=== PATIENT | female | born 1950 | race Caucasian/White ===

== ENCOUNTER 2021-04-21 07:12 | Inpatient (IN) | payer OTHER, MEDICARE ==
[2021-04-21 07:41] LABS: #Lymphocytes 0.7 thou/uL (1.20-3.40); #Monocytes 0.8 thou/uL (0.11-0.59); #Neutrophils 11.2 thou/uL (1.40-6.50); %Basophils 0.1 % (0.0-1.0); %Eosinophils 0.1 % (0.0-10.0); %Lymphocytes 5.2 % (21.0-51.0); %Monocytes 6.2 % (0.0-10.0); %Neutrophils 88.5 % (42.0-75.0); Hemoglobin 11.2 g/dL (12.0-16.0); Mean Corpuscular HGB CONC 32.7 g/dL (32.0-36.0); Mean Corpuscular Hemoglobin 31.1 pg (27.0-31.0); Mean Corpuscular Volume 94.9 fL (78.0-98.0); Mean Platelet Volume 7.9 fL (7.4-10.4); Platelet Count 179 thou/uL (130-400); RBC Distribution Width 13.3 % (11.5-14.5); Red Blood Cell (RBC) Count 3.61 mill/uL (4.20-5.40); White Blood Cell (WBC) Count 12.6 thou/uL (4.8-10.8)
[2021-04-21] MEDS ORDERED: ADMIXTURE FEE IV SCH (07:45)
[2021-04-21] MEDS ORDERED: IDARUCIZUMAB IV SCH (07:45)
[2021-04-21 07:54] LABS: INR-International Normal Ratio 1.8
[2021-04-21 07:55] LABS: ALT (SGPT) 16 U/L (8-55); AST (SGOT) 32 U/L (5-34); Albumin 2.5 g/dL (3.4-4.8); Alkaline Phosphatase 44 U/L (40-110); Anion Gap 14 mmol/L (10-20); BUN (Urea Nitrogen) 37 mg/dL (9.8-20.1); Bilirubin, Total 0.6 mg/dL (0.2-1.2); CK (CPK) 883 U/L (29-168); Calc. Creatinine Clearance 0 mL/min (70-130); Calcium 7.6 mg/dL (7.8-10.44); Carbon Dioxide 18 mmol/L (23-31); Chloride 110 mmol/L (98-107); Glucose 236 mg/dL (80-115); Lipase 17 U/L (8-78); Potassium 3.9 mmol/L (3.5-5.1); Protein, Total 4.5 g/dL (5.8-8.1); Sodium 138 mmol/L (136-145)
[2021-04-21 07:56] LABS: PTT 51.8 sec (22.9-36.1)
[2021-04-21] MEDS ORDERED: Boostrix 0.5 ML (Tdap) VIAL ONE (07:59)
[2021-04-21] MEDS ORDERED: Dextrose 50% Abboject 50 ML SYRINGE SLOW IVP PRN (08:03)
[2021-04-21] MEDS ORDERED: Dextrose 5% in Water 1,000 ML IV PRN (08:03)
[2021-04-21] MEDS ORDERED: hydrALAZINE 20 MG/ML VIAL SLOW IVP PRN (08:03)
[2021-04-21] MEDS ORDERED: Ondansetron PF 4 MG/2 ML Vial IVP PRN (08:03)
[2021-04-21 08:25] LABS: CKMB 10.5 ng/mL (0-6.6)
[2021-04-21] MEDS ORDERED: Fentanyl 100 MCG/2 ML VIAL ONE ×3 (09:01→18:25)
[2021-04-21] MEDS ORDERED: Norepinephrine 8 MG/0.9% NS 250 ML ONE (09:55)
[2021-04-21 10:24] LABS: Phosphorus 3.5 mg/dL (2.3-4.7)
[2021-04-21 10:25] LABS: Magnesium 1.6 mg/dL (1.6-2.6)
[2021-04-21] MEDS ORDERED: ceFAZolin 2 GM/Dextrose 50 ML 2 GM in Premix Bag 1 BAG IVPB SCH (11:00)
[2021-04-21 11:09] LABS: SARS-CoV-2 NAA Rapid Test Not Detected (NotDetected)
[2021-04-21 11:47] VITALS: BMI 55.5
[2021-04-21] MEDS: Sodium Chloride 0.9% 1,000 ML IV SCH ×2 (12:04→19:59)
[2021-04-21] MEDS: Acetaminophen 325 MG TAB PO SCH ×3 (12:06→20:35)
[2021-04-21] MEDS: Famotidine/PF 20 mg/2ml Vial SLOW IVP SCH ×2 (12:06→20:40)
[2021-04-21] MEDS: Polyethylene Glycol 3350 17 GM Packet PO SCH (12:06)
[2021-04-21] MEDS: Senokot S 8.6-50 MG TAB PO SCH ×2 (12:06→20:38)
[2021-04-21 12:24] LABS: Troponin I 0.471 ng/mL (< 0.028)
[2021-04-21] MEDS ORDERED: Glycopyrrolate 0.2 MG/ML 5 ML SYRINGE ONE (13:05)
[2021-04-21] MEDS ORDERED: Lidocaine 1% PF 5 ML VIAL ONE (13:05)
[2021-04-21] MEDS ORDERED: PHENYLEPHRINE-NS 100 MCG/ML 10 ML SYRINGE ONE (13:05)
[2021-04-21] MEDS ORDERED: Ondansetron PF 4 MG/2 ML Vial ONE (13:05)
[2021-04-21] MEDS ORDERED: Rocuronium Bromide 10 MG/ML (10ML VIAL) ONE (13:05)
[2021-04-21] MEDS ORDERED: Metoclopramide HCl 10 MG/2 ML VIAL ONE (13:05)
[2021-04-21] MEDS ORDERED: PROPOFOL 200 MG/20 ML VIAL ONE (13:05)
[2021-04-21] MEDS: Morphine 4 MG/ML VIAL SLOW IVP PRN ×2 (13:09→23:30)
[2021-04-21] MEDS ORDERED: Magnesium Sulfate 4 GM in Sodium Chloride 0.9% 250 ML 250 ML IV SCH (13:15)
[2021-04-21] MEDS ORDERED: Famotidine/PF 20 mg/2ml Vial ONE (14:04)
[2021-04-21] MEDS ORDERED: ceFAZolin 2 GM/DEX 5% 100 ML BAG ONE (14:21)
[2021-04-21] MEDS ORDERED: Norepinephrine 4 MG/4 ML VIAL ONE (14:24)
[2021-04-21] MEDS ORDERED: Phenylephrine 10 MG/ML VIAL ONE (14:57)
[2021-04-21] MEDS ORDERED: Oxybutynin 5 MG TAB PO PRN (15:54)
[2021-04-21] MEDS ORDERED: Promethazine HCl 25 MG/ML VIAL IM PRN (18:04)
[2021-04-21] MEDS ORDERED: PACU-Morphine 4MG/ML VIAL SLOW IVP PRN (18:04)
[2021-04-21] MEDS ORDERED: Meperidine HCl/PF 25 MG/ML VIAL SLOW IVP PRN (18:04)
[2021-04-21] MEDS ORDERED: Promethazine HCl 25 MG/ML VIAL IVPB PRN (18:04)
[2021-04-21 19:58] LABS: Troponin I 0.567 ng/mL (< 0.028)
[2021-04-21] MEDS: Flecainide 50 MG TAB PO SCH (20:38)
[2021-04-21] MEDS: Ascorbic Acid 500 mg Chewable Tablet PO SCH (20:38)
[2021-04-21] MEDS: Atorvastatin Calcium 40 MG TAB PO SCH (20:38)
[2021-04-21] MEDS: hydrALAZINE 25 MG TAB PO SCH (20:41)
[2021-04-21] MEDS ORDERED: Losartan 25 MG TAB PO SCH (21:00)
[2021-04-21] MEDS ORDERED: hydrALAZINE 20 MG/ML VIAL SLOW IVP SCH (21:00)
[2021-04-21] MEDS: ceFAZolin Sodium/D5W 2 GM in Premix Bag 1 BAG IVPB SCH (22:10)
[2021-04-22] MEDS: Sodium Chloride 0.9% 1,000 ML IV SCH ×2 (02:15→13:47)
[2021-04-22] MEDS: Acetaminophen 325 MG TAB PO SCH ×4 (02:15→20:14)
[2021-04-22 03:35] LABS: INR-International Normal Ratio 1.3; PTT 31.4 sec (22.9-36.1); Prothrombin Time 16.2 sec (12.0-14.7)
[2021-04-22 03:38] LABS: Phosphorus 3.6 mg/dL (2.3-4.7)
[2021-04-22 03:42] LABS: #Monocytes 0.9 thou/uL (0.11-0.59); #Neutrophils 5.2 thou/uL (1.40-6.50); %Basophils 0.4 % (0.0-1.0); %Eosinophils 0.1 % (0.0-10.0); %Lymphocytes 13.7 % (21.0-51.0); %Neutrophils 73.7 % (42.0-75.0); Mean Corpuscular HGB CONC 34.5 g/dL (32.0-36.0); Platelet Count 91 thou/uL (130-400); Platelet Morphology Comment Appears Decreased; White Blood Cell (WBC) Count 7.1 thou/uL (4.8-10.8)
[2021-04-22 03:46] LABS: Anion Gap 10 mmol/L (10-20); BUN (Urea Nitrogen) 41 mg/dL (9.8-20.1); CK (CPK) 3198 U/L (29-168); Calc. Creatinine Clearance 65 mL/min (70-130); Calcium 6.9 mg/dL (7.8-10.44); Carbon Dioxide 19 mmol/L (23-31); Chloride 111 mmol/L (98-107); Glucose 130 mg/dL (80-115); Magnesium 1.6 mg/dL (1.6-2.6); Potassium 4.2 mmol/L (3.5-5.1); Sodium 136 mmol/L (136-145)
[2021-04-22 03:58] LABS: Troponin I 0.515 ng/mL (< 0.028)
[2021-04-22] MEDS: Levothyroxine Sodium 88 MCG TAB PO SCH (06:18)
[2021-04-22] MEDS: ceFAZolin Sodium/D5W 2 GM in Premix Bag 1 BAG IVPB SCH (06:18)
[2021-04-22] MEDS ORDERED: Magnesium Sulfate 4 GM in Sodium Chloride 0.9% 250 ML 250 ML IV SCH (08:00)
[2021-04-22] MEDS ORDERED: Sodium Bicarbonate 100 MEQ in Dextrose 5% in Water 1,000 ML FS SCH (08:15)
[2021-04-22] MEDS ORDERED: Calcium Chloride 1 GM/10 ML Abboject SYRINGE IVP SCH (09:30)
[2021-04-22] MEDS: Morphine 4 MG/ML VIAL SLOW IVP PRN (09:37)
[2021-04-22] MEDS: Torsemide 10 MG TAB PO SCH (09:42)
[2021-04-22] MEDS: Ferrous Sulfate 325 MG TAB PO SCH ×2 (09:42→17:37)
[2021-04-22] MEDS: Senokot S 8.6-50 MG TAB PO SCH ×2 (09:42→20:17)
[2021-04-22] MEDS: Flecainide 50 MG TAB PO SCH ×2 (09:44→20:17)
[2021-04-22] MEDS: Ascorbic Acid 500 mg Chewable Tablet PO SCH ×2 (09:45→20:16)
[2021-04-22] MEDS: hydrALAZINE 25 MG TAB PO SCH ×2 (09:45→20:17)
[2021-04-22] MEDS ORDERED: Sodium Chloride 0.9% 1,000 ML IV SCH (09:45)
[2021-04-22] MEDS: Polyethylene Glycol 3350 17 GM Packet PO SCH (09:46)
[2021-04-22] MEDS: Atorvastatin Calcium 40 MG TAB PO SCH (20:16)
[2021-04-23] MEDS: Acetaminophen 325 MG TAB PO SCH ×4 (01:10→21:07)
[2021-04-23] MEDS: Sodium Chloride 0.9% 1,000 ML IV SCH ×5 (01:10→18:01)
[2021-04-23] MEDS: Morphine 4 MG/ML VIAL SLOW IVP PRN (04:54)
[2021-04-23] MEDS: Levothyroxine Sodium 88 MCG TAB PO SCH (04:55)
[2021-04-23 05:56] LABS: #Eosinphils 0.1 thou/uL (0.0-0.7); #Monocytes 0.8 thou/uL (0.11-0.59); #Neutrophils 4.1 thou/uL (1.40-6.50); %Basophils 0.3 % (0.0-1.0); %Eosinophils 1.3 % (0.0-10.0); %Lymphocytes 16.3 % (21.0-51.0); %Monocytes 12.7 % (0.0-10.0); %Neutrophils 69.4 % (42.0-75.0); Hemoglobin 7.1 g/dL (12.0-16.0); Mean Corpuscular HGB CONC 33.4 g/dL (32.0-36.0); Mean Corpuscular Hemoglobin 31.9 pg (27.0-31.0); Mean Corpuscular Volume 95.6 fL (78.0-98.0); Mean Platelet Volume 8.2 fL (7.4-10.4); Platelet Count 82 thou/uL (130-400); RBC Distribution Width 13.7 % (11.5-14.5); Red Blood Cell (RBC) Count 2.23 mill/uL (4.20-5.40); White Blood Cell (WBC) Count 5.9 thou/uL (4.8-10.8)
[2021-04-23 06:16] LABS: Anion Gap 9 mmol/L (10-20); BUN (Urea Nitrogen) 40 mg/dL (9.8-20.1); CK (CPK) 2578 U/L (29-168); Calc. Creatinine Clearance 65 mL/min (70-130); Calcium 7.3 mg/dL (7.8-10.44); Carbon Dioxide 20 mmol/L (23-31); Chloride 112 mmol/L (98-107); Glucose 128 mg/dL (80-115); Magnesium 2.5 mg/dL (1.6-2.6); Phosphorus 3.1 mg/dL (2.3-4.7); Sodium 137 mmol/L (136-145)
[2021-04-23] MEDS ORDERED: Fentanyl 100 MCG/2 ML VIAL ONE (07:51)
[2021-04-23] MEDS ORDERED: ceFAZolin 2 GM/DEX 5% 100 ML BAG ONE (08:05)
[2021-04-23] MEDS ORDERED: PROPOFOL 200 MG/20 ML VIAL ONE (08:20)
[2021-04-23] MEDS ORDERED: Dexamethasone 20 MG/5 ML VIAL ONE (08:20)
[2021-04-23] MEDS ORDERED: Succinylcholine 200 MG/10 ml SYRINGE FS ONE (08:20)
[2021-04-23] MEDS ORDERED: Lidocaine 1% PF 5 ML VIAL ONE (08:20)
[2021-04-23] MEDS ORDERED: Ondansetron PF 4 MG/2 ML Vial ONE (08:20)
[2021-04-23] MEDS ORDERED: Rocuronium Bromide 10 MG/ML (10ML VIAL) ONE (08:20)
[2021-04-23] MEDS ORDERED: Glycopyrrolate 0.2 MG/ML 5 ML SYRINGE ONE (08:20)
[2021-04-23] MEDS: Torsemide 10 MG TAB PO SCH (09:00)
[2021-04-23] MEDS: hydrALAZINE 25 MG TAB PO SCH ×2 (09:46→21:06)
[2021-04-23] MEDS: Ferrous Sulfate 325 MG TAB PO SCH ×2 (10:31→17:46)
[2021-04-23] MEDS: Polyethylene Glycol 3350 17 GM Packet PO SCH (10:32)
[2021-04-23] MEDS: Senokot S 8.6-50 MG TAB PO SCH ×2 (10:32→21:08)
[2021-04-23] MEDS: Ascorbic Acid 500 mg Chewable Tablet PO SCH ×2 (10:32→17:46)
[2021-04-23] MEDS: ceFAZolin Sodium/D5W 2 GM in Premix Bag 1 BAG IVPB SCH ×3 (14:24→21:10)
[2021-04-23] MEDS ORDERED: Flecainide 50 MG TAB PO SCH (14:30)
[2021-04-23] MEDS: Flecainide 50 MG TAB PO SCH ×2 (17:46→21:08)
[2021-04-23 20:22] LABS: #Basophils 0.1 thou/uL (0.0-0.2); #Lymphocytes 0.2 thou/uL (1.20-3.40); #Monocytes 0.3 thou/uL (0.11-0.59); #Neutrophils 5.9 thou/uL (1.40-6.50); %Basophils 1.5 % (0.0-1.0); %Eosinophils 0.2 % (0.0-10.0); %Lymphocytes 2.6 % (21.0-51.0); %Monocytes 4.2 % (0.0-10.0); %Neutrophils 91.5 % (42.0-75.0); Hemoglobin 9.6 g/dL (12.0-16.0); Mean Corpuscular HGB CONC 34.4 g/dL (32.0-36.0); Mean Corpuscular Hemoglobin 32.3 pg (27.0-31.0); Mean Platelet Volume 8.8 fL (7.4-10.4); Platelet Count 75 thou/uL (130-400); RBC Distribution Width 13.3 % (11.5-14.5); Red Blood Cell (RBC) Count 2.97 mill/uL (4.20-5.40); White Blood Cell (WBC) Count 6.4 thou/uL (4.8-10.8)
[2021-04-23] MEDS: Atorvastatin Calcium 40 MG TAB PO SCH (21:06)
[2021-04-23] MEDS: Losartan 25 MG TAB PO SCH (21:07)
[2021-04-24] MEDS: Sodium Chloride 0.9% 1,000 ML IV SCH ×3 (01:26→17:24)
[2021-04-24] MEDS: Acetaminophen 325 MG TAB PO SCH ×3 (01:50→21:57)
[2021-04-24] MEDS: ceFAZolin Sodium/D5W 2 GM in Premix Bag 1 BAG IVPB SCH ×2 (05:16→05:17)
[2021-04-24] MEDS: Levothyroxine Sodium 88 MCG TAB PO SCH (05:17)
[2021-04-24] MEDS: Morphine 4 MG/ML VIAL SLOW IVP PRN (05:58)
[2021-04-24 06:20] LABS: #Lymphocytes 0.4 thou/uL (1.20-3.40); #Monocytes 0.6 thou/uL (0.11-0.59); #Neutrophils 6.6 thou/uL (1.40-6.50); %Lymphocytes 5.7 % (21.0-51.0); %Monocytes 7.8 % (0.0-10.0); %Neutrophils 86.5 % (42.0-75.0); Hemoglobin 9.5 g/dL (12.0-16.0); Mean Corpuscular HGB CONC 33.9 g/dL (32.0-36.0); Mean Corpuscular Hemoglobin 31.6 pg (27.0-31.0); Mean Corpuscular Volume 93.1 fL (78.0-98.0); Mean Platelet Volume 8.7 fL (7.4-10.4); Platelet Count 87 thou/uL (130-400); RBC Distribution Width 13.2 % (11.5-14.5); Red Blood Cell (RBC) Count 3.02 mill/uL (4.20-5.40); White Blood Cell (WBC) Count 7.7 thou/uL (4.8-10.8)
[2021-04-24 06:36] LABS: Anion Gap 10 mmol/L (10-20); BUN (Urea Nitrogen) 32 mg/dL (9.8-20.1); CK (CPK) 2495 U/L (29-168); Calc. Creatinine Clearance 72 mL/min (70-130); Calcium 7.5 mg/dL (7.8-10.44); Carbon Dioxide 22 mmol/L (23-31); Chloride 108 mmol/L (98-107); Glucose 221 mg/dL (80-115); Magnesium 2.3 mg/dL (1.6-2.6); Phosphorus 2.1 mg/dL (2.3-4.7); Potassium 4.6 mmol/L (3.5-5.1); Sodium 135 mmol/L (136-145)
[2021-04-24 06:40] LABS: Troponin I 0.505 ng/mL (< 0.028)
[2021-04-24] MEDS ORDERED: Sodium Phosphate 30 MMOL in Sodium Chloride 0.9% 250 ML 250 ML IVPB SCH (08:00)
[2021-04-24] MEDS ORDERED: Acetaminophen 500 MG TAB PO SCH (08:00)
[2021-04-24] MEDS: hydrALAZINE 25 MG TAB PO SCH ×2 (08:21→21:59)
[2021-04-24] MEDS: Ferrous Sulfate 325 MG TAB PO SCH ×2 (08:21→15:16)
[2021-04-24] MEDS: Senokot S 8.6-50 MG TAB PO SCH ×2 (08:21→22:00)
[2021-04-24] MEDS: Ascorbic Acid 500 mg Chewable Tablet PO SCH ×2 (08:21→21:58)
[2021-04-24] MEDS: Polyethylene Glycol 3350 17 GM Packet PO SCH (08:21)
[2021-04-24] MEDS ORDERED: Enoxaparin Sodium 40 MG/0.4 ML SYRINGE SC SCH (09:00)
[2021-04-24] MEDS ORDERED: Morphine 4 MG/ML VIAL SLOW IVP PRN (09:30)
[2021-04-24] MEDS: Flecainide 50 MG TAB PO SCH ×2 (09:39→22:05)
[2021-04-24] MEDS: Torsemide 10 MG TAB PO SCH (12:58)
[2021-04-24] MEDS: Acetaminophen/Codeine 30-300mg Tablet PO SCH ×2 (12:58→17:44)
[2021-04-24] MEDS: Gabapentin 100 MG CAP PO SCH ×2 (15:16→21:59)
[2021-04-24] MEDS ORDERED: Enoxaparin Sodium 30 MG/0.3 ML SYRINGE SC SCH (21:00)
[2021-04-24] MEDS: Atorvastatin Calcium 40 MG TAB PO SCH (21:58)
[2021-04-24] MEDS: Losartan 25 MG TAB PO SCH (22:00)
[2021-04-25] MEDS: Acetaminophen/Codeine 30-300mg Tablet PO SCH ×4 (00:52→19:12)
[2021-04-25] MEDS: Acetaminophen 325 MG TAB PO SCH ×4 (05:31→20:21)
[2021-04-25] MEDS: Levothyroxine Sodium 88 MCG TAB PO SCH (05:34)
[2021-04-25] MEDS: Sodium Chloride 0.9% 1,000 ML IV SCH (05:36)
[2021-04-25 06:15] LABS: #Lymphocytes 0.8 thou/uL (1.20-3.40); #Monocytes 0.8 thou/uL (0.11-0.59); #Neutrophils 7.1 thou/uL (1.40-6.50); %Basophils 0.1 % (0.0-1.0); %Eosinophils 0.1 % (0.0-10.0); %Lymphocytes 8.7 % (21.0-51.0); %Monocytes 8.8 % (0.0-10.0); %Neutrophils 82.2 % (42.0-75.0); Hemoglobin 9.3 g/dL (12.0-16.0); Mean Corpuscular HGB CONC 33.5 g/dL (32.0-36.0); Mean Corpuscular Hemoglobin 31.5 pg (27.0-31.0); Mean Corpuscular Volume 94.1 fL (78.0-98.0); Mean Platelet Volume 8.4 fL (7.4-10.4); Platelet Count 119 thou/uL (130-400); RBC Distribution Width 13.5 % (11.5-14.5); Red Blood Cell (RBC) Count 2.93 mill/uL (4.20-5.40); White Blood Cell (WBC) Count 8.6 thou/uL (4.8-10.8)
[2021-04-25 06:40] LABS: Anion Gap 11 mmol/L (10-20); BUN (Urea Nitrogen) 36 mg/dL (9.8-20.1); CK (CPK) 1714 U/L (29-168); Calc. Creatinine Clearance 91 mL/min (70-130); Calcium 7.5 mg/dL (7.8-10.44); Carbon Dioxide 21 mmol/L (23-31); Chloride 112 mmol/L (98-107); Glucose 129 mg/dL (80-115); Magnesium 2.3 mg/dL (1.6-2.6); Phosphorus 2.3 mg/dL (2.3-4.7); Potassium 4.5 mmol/L (3.5-5.1); Sodium 139 mmol/L (136-145)
[2021-04-25] MEDS: Polyethylene Glycol 3350 17 GM Packet PO SCH (09:55)
[2021-04-25] MEDS: Gabapentin 100 MG CAP PO SCH ×3 (09:56→20:20)
[2021-04-25] MEDS: hydrALAZINE 25 MG TAB PO SCH ×2 (09:57→20:24)
[2021-04-25] MEDS: Senokot S 8.6-50 MG TAB PO SCH ×2 (09:57→20:25)
[2021-04-25] MEDS: Ferrous Sulfate 325 MG TAB PO SCH ×2 (09:57→19:12)
[2021-04-25] MEDS: Dabigatran 150 mg Capsule PO SCH ×2 (09:57→20:23)
[2021-04-25] MEDS: Torsemide 10 MG TAB PO SCH (09:59)
[2021-04-25] MEDS: Ascorbic Acid 500 mg Chewable Tablet PO SCH ×2 (09:59→20:23)
[2021-04-25] MEDS: Flecainide 50 MG TAB PO SCH ×2 (10:00→20:23)
[2021-04-25] MEDS: Atorvastatin Calcium 40 MG TAB PO SCH (20:23)
[2021-04-25] MEDS: Losartan 25 MG TAB PO SCH (20:24)
[2021-04-26] MEDS: Acetaminophen/Codeine 30-300mg Tablet PO SCH ×5 (00:14→23:04)
[2021-04-26] MEDS: Acetaminophen 325 MG TAB PO SCH ×5 (02:43→20:38)
[2021-04-26] MEDS: Levothyroxine Sodium 88 MCG TAB PO SCH (05:01)
[2021-04-26 06:40] LABS: Hemoglobin 9.6 g/dL (12.0-16.0); Mean Corpuscular HGB CONC 33.2 g/dL (32.0-36.0); Mean Corpuscular Hemoglobin 31.4 pg (27.0-31.0); Mean Corpuscular Volume 94.6 fL (78.0-98.0); Mean Platelet Volume 7.6 fL (7.4-10.4); Platelet Count 154 thou/uL (130-400); RBC Distribution Width 13.6 % (11.5-14.5); Red Blood Cell (RBC) Count 3.06 mill/uL (4.20-5.40)
[2021-04-26 06:41] LABS: Band 1 % (5-11); Eosinophils 1 % (0-10); Hypochromia SLIGHT = 6-15 cells (100X) (0-5/hpf); Lymphocytes 9 % (21-51); MDiff Complete? YES; Monocytes 13 % (0-10); Neutrophil 76 % (42-75); Nucleated RBC 1 % (0); Platelet Morphology Comment Appears Adequate
[2021-04-26 06:47] LABS: Anion Gap 10 mmol/L (10-20); BUN (Urea Nitrogen) 35 mg/dL (9.8-20.1); CK (CPK) 1194 U/L (29-168); Calc. Creatinine Clearance 95 mL/min (70-130); Calcium 7.9 mg/dL (7.8-10.44); Carbon Dioxide 25 mmol/L (23-31); Chloride 110 mmol/L (98-107); Glucose 111 mg/dL (80-115); Magnesium 2.1 mg/dL (1.6-2.6); Phosphorus 2.1 mg/dL (2.3-4.7); Potassium 4.5 mmol/L (3.5-5.1); Sodium 140 mmol/L (136-145)
[2021-04-26] MEDS ORDERED: Magnesium Citrate 300 ML BOT PO SCH (07:45)
[2021-04-26] MEDS ORDERED: Sodium Phosphate 30 MMOL in Sodium Chloride 0.9% 250 ML 250 ML IVPB SCH (08:15)
[2021-04-26] MEDS: Polyethylene Glycol 3350 17 GM Packet PO SCH (08:39)
[2021-04-26] MEDS: Torsemide 10 MG TAB PO SCH (08:39)
[2021-04-26] MEDS: Dabigatran 150 mg Capsule PO SCH ×2 (08:40→20:40)
[2021-04-26] MEDS: Ferrous Sulfate 325 MG TAB PO SCH ×2 (08:41→18:28)
[2021-04-26] MEDS: Ascorbic Acid 500 mg Chewable Tablet PO SCH ×2 (08:41→20:39)
[2021-04-26] MEDS: diphenhydrAMINE 25 MG CAP PO PRN (08:41)
[2021-04-26] MEDS: Flecainide 50 MG TAB PO SCH ×2 (08:42→20:40)
[2021-04-26] MEDS: Gabapentin 100 MG CAP PO SCH ×3 (08:43→20:41)
[2021-04-26] MEDS: hydrALAZINE 25 MG TAB PO SCH ×2 (08:44→21:20)
[2021-04-26] MEDS: Senokot S 8.6-50 MG TAB PO SCH ×2 (08:48→20:43)
[2021-04-26] MEDS: Atorvastatin Calcium 40 MG TAB PO SCH (20:40)
[2021-04-26] MEDS: Losartan 25 MG TAB PO SCH (20:42)
[2021-04-27] MEDS: Acetaminophen 325 MG TAB PO SCH ×4 (01:48→20:48)
[2021-04-27] MEDS: Acetaminophen/Codeine 30-300mg Tablet PO SCH ×4 (05:12→23:44)
[2021-04-27] MEDS: Levothyroxine Sodium 88 MCG TAB PO SCH (05:12)
[2021-04-27] MEDS: Torsemide 10 MG TAB PO SCH (08:54)
[2021-04-27] MEDS: Ascorbic Acid 500 mg Chewable Tablet PO SCH ×2 (08:54→20:49)
[2021-04-27] MEDS: Ferrous Sulfate 325 MG TAB PO SCH ×2 (08:54→17:50)
[2021-04-27] MEDS: Flecainide 50 MG TAB PO SCH ×2 (08:55→20:50)
[2021-04-27] MEDS: Gabapentin 100 MG CAP PO SCH ×3 (08:56→20:52)
[2021-04-27] MEDS: Senokot S 8.6-50 MG TAB PO SCH ×2 (08:57→20:55)
[2021-04-27] MEDS: hydrALAZINE 25 MG TAB PO SCH ×2 (08:57→20:53)
[2021-04-27] MEDS: Polyethylene Glycol 3350 17 GM Packet PO SCH (08:58)
[2021-04-27] MEDS: Dabigatran 150 mg Capsule PO SCH ×2 (08:58→20:49)
[2021-04-27] MEDS ORDERED: Bisacodyl 10 MG SUPP PR PRN (09:22)
[2021-04-27] MEDS ORDERED: Magnesium Citrate 300 ML BOT PO SCH (10:15)
[2021-04-27] MEDS ORDERED: Mineral Oil ENEMA PR SCH (10:15)
[2021-04-27] MEDS: Atorvastatin Calcium 40 MG TAB PO SCH (20:49)
[2021-04-27] MEDS: Losartan 25 MG TAB PO SCH (20:54)
[2021-04-27] MEDS: diphenhydrAMINE 25 MG CAP PO PRN (21:00)
[2021-04-28] MEDS: Acetaminophen 325 MG TAB PO SCH ×4 (02:07→20:43)
[2021-04-28] MEDS: Acetaminophen/Codeine 30-300mg Tablet PO SCH ×3 (05:22→17:26)
[2021-04-28] MEDS: Levothyroxine Sodium 88 MCG TAB PO SCH (05:23)
[2021-04-28] MEDS: Ferrous Sulfate 325 MG TAB PO SCH (08:32)
[2021-04-28] MEDS: Polyethylene Glycol 3350 17 GM Packet PO SCH (08:32)
[2021-04-28] MEDS: Dabigatran 150 mg Capsule PO SCH ×2 (08:32→20:43)
[2021-04-28] MEDS: Flecainide 50 MG TAB PO SCH ×2 (08:33→21:40)
[2021-04-28] MEDS: Ascorbic Acid 500 mg Chewable Tablet PO SCH (08:33)
[2021-04-28] MEDS: Senokot S 8.6-50 MG TAB PO SCH ×2 (08:33→20:43)
[2021-04-28] MEDS: Gabapentin 100 MG CAP PO SCH ×3 (08:36→20:44)
[2021-04-28] MEDS: hydrALAZINE 25 MG TAB PO SCH ×2 (08:37→20:44)
[2021-04-28 08:38] LABS: #Eosinphils 0.4 thou/uL (0.0-0.7); #Monocytes 0.5 thou/uL (0.11-0.59); #Neutrophils 5.4 thou/uL (1.40-6.50); %Basophils 0.3 % (0.0-1.0); %Eosinophils 5.1 % (0.0-10.0); %Lymphocytes 13.1 % (21.0-51.0); %Monocytes 6.8 % (0.0-10.0); %Neutrophils 74.7 % (42.0-75.0); Mean Corpuscular HGB CONC 32.6 g/dL (32.0-36.0); Mean Corpuscular Hemoglobin 31.5 pg (27.0-31.0); Mean Corpuscular Volume 96.8 fL (78.0-98.0); Mean Platelet Volume 7.1 fL (7.4-10.4); Platelet Count 243 thou/uL (130-400); RBC Distribution Width 14.2 % (11.5-14.5); Red Blood Cell (RBC) Count 3.18 mill/uL (4.20-5.40); White Blood Cell (WBC) Count 7.2 thou/uL (4.8-10.8)
[2021-04-28 09:00] LABS: Anion Gap 8 mmol/L (10-20); BUN (Urea Nitrogen) 30 mg/dL (9.8-20.1); CK (CPK) 318 U/L (29-168); Calc. Creatinine Clearance 120 mL/min (70-130); Calcium 8.2 mg/dL (7.8-10.44); Carbon Dioxide 30 mmol/L (23-31); Chloride 105 mmol/L (98-107); Glucose 126 mg/dL (80-115); Magnesium 2.3 mg/dL (1.6-2.6); Potassium 4.9 mmol/L (3.5-5.1); Sodium 138 mmol/L (136-145)
[2021-04-28] MEDS: Torsemide 10 MG TAB PO SCH (09:13)
[2021-04-28] MEDS: diphenhydrAMINE 25 MG CAP PO PRN (09:39)
[2021-04-28 16:50] LABS: SARS-CoV-2 PCR by NAA Not Detected (NotDetected)
[2021-04-28] MEDS: Atorvastatin Calcium 40 MG TAB PO SCH (20:43)
[2021-04-28] MEDS: Losartan 25 MG TAB PO SCH (20:44)
[2021-04-29] MEDS: Acetaminophen/Codeine 30-300mg Tablet PO SCH ×4 (00:10→17:53)
[2021-04-29] MEDS: Acetaminophen 325 MG TAB PO SCH ×4 (02:15→21:01)
[2021-04-29] MEDS: Levothyroxine Sodium 88 MCG TAB PO SCH (05:55)
[2021-04-29] MEDS: Flecainide 50 MG TAB PO SCH ×2 (08:36→21:02)
[2021-04-29] MEDS: Torsemide 10 MG TAB PO SCH (08:36)
[2021-04-29] MEDS: Dabigatran 150 mg Capsule PO SCH ×2 (08:36→21:00)
[2021-04-29] MEDS: diphenhydrAMINE 25 MG CAP PO PRN (08:38)
[2021-04-29] MEDS: Senokot S 8.6-50 MG TAB PO SCH ×2 (08:38→21:01)
[2021-04-29] MEDS: Gabapentin 100 MG CAP PO SCH ×3 (08:38→21:00)
[2021-04-29] MEDS: hydrALAZINE 25 MG TAB PO SCH ×2 (08:39→21:01)
[2021-04-29] MEDS: Polyethylene Glycol 3350 17 GM Packet PO SCH (08:39)
[2021-04-29] MEDS: Losartan 25 MG TAB PO SCH (21:00)
[2021-04-29] MEDS: Atorvastatin Calcium 40 MG TAB PO SCH (21:00)
[2021-04-30] MEDS: Acetaminophen/Codeine 30-300mg Tablet PO SCH ×5 (00:52→23:58)
[2021-04-30] MEDS: Acetaminophen 325 MG TAB PO SCH ×4 (04:16→20:59)
[2021-04-30] MEDS: Levothyroxine Sodium 88 MCG TAB PO SCH (06:33)
[2021-04-30 07:15] LABS: #Eosinphils 0.4 thou/uL (0.0-0.7); #Lymphocytes 0.9 thou/uL (1.20-3.40); #Monocytes 0.5 thou/uL (0.11-0.59); #Neutrophils 4.1 thou/uL (1.40-6.50); %Basophils 0.1 % (0.0-1.0); %Eosinophils 7.1 % (0.0-10.0); %Lymphocytes 14.8 % (21.0-51.0); %Neutrophils 69.1 % (42.0-75.0); Hemoglobin 9.5 g/dL (12.0-16.0); Mean Corpuscular HGB CONC 32.1 g/dL (32.0-36.0); Mean Corpuscular Hemoglobin 31.5 pg (27.0-31.0); Mean Corpuscular Volume 98.3 fL (78.0-98.0); Mean Platelet Volume 6.8 fL (7.4-10.4); Platelet Count 281 thou/uL (130-400); RBC Distribution Width 14.6 % (11.5-14.5); Red Blood Cell (RBC) Count 3.01 mill/uL (4.20-5.40)
[2021-04-30 07:19] LABS: Anion Gap 10 mmol/L (10-20); BUN (Urea Nitrogen) 30 mg/dL (9.8-20.1); Calc. Creatinine Clearance 103 mL/min (70-130); Calcium 8.6 mg/dL (7.8-10.44); Carbon Dioxide 29 mmol/L (23-31); Chloride 105 mmol/L (98-107); Glucose 106 mg/dL (80-115); Magnesium 1.9 mg/dL (1.6-2.6); Phosphorus 3.6 mg/dL (2.3-4.7); Potassium 5.3 mmol/L (3.5-5.1); Sodium 139 mmol/L (136-145)
[2021-04-30] MEDS: Polyethylene Glycol 3350 17 GM Packet PO SCH (08:04)
[2021-04-30] MEDS: Gabapentin 100 MG CAP PO SCH ×3 (08:05→20:58)
[2021-04-30] MEDS: hydrALAZINE 25 MG TAB PO SCH ×2 (08:05→20:59)
[2021-04-30] MEDS: Dabigatran 150 mg Capsule PO SCH ×2 (08:06→20:59)
[2021-04-30] MEDS: diphenhydrAMINE 25 MG CAP PO PRN ×2 (08:06→20:57)
[2021-04-30] MEDS: Flecainide 50 MG TAB PO SCH ×2 (08:06→20:58)
[2021-04-30] MEDS: Torsemide 10 MG TAB PO SCH (08:06)
[2021-04-30] MEDS: Senokot S 8.6-50 MG TAB PO SCH ×2 (08:06→20:58)
[2021-04-30] MEDS: Atorvastatin Calcium 40 MG TAB PO SCH (20:59)
[2021-04-30] MEDS: Losartan 25 MG TAB PO SCH (20:59)
[2021-05-01] MEDS: Acetaminophen 325 MG TAB PO SCH ×4 (02:41→20:29)
[2021-05-01] MEDS: Acetaminophen/Codeine 30-300mg Tablet PO SCH ×4 (05:40→23:40)
[2021-05-01] MEDS: diphenhydrAMINE 25 MG CAP PO PRN ×2 (05:40→11:47)
[2021-05-01] MEDS: Levothyroxine Sodium 88 MCG TAB PO SCH (05:40)
[2021-05-01] MEDS: Senokot S 8.6-50 MG TAB PO SCH ×2 (09:15→20:34)
[2021-05-01] MEDS: Torsemide 10 MG TAB PO SCH (09:15)
[2021-05-01] MEDS: Dabigatran 150 mg Capsule PO SCH ×2 (09:15→20:30)
[2021-05-01] MEDS: Polyethylene Glycol 3350 17 GM Packet PO SCH (09:15)
[2021-05-01] MEDS: Gabapentin 100 MG CAP PO SCH ×2 (09:16→14:30)
[2021-05-01] MEDS: Flecainide 50 MG TAB PO SCH ×2 (09:17→20:32)
[2021-05-01] MEDS: hydrALAZINE 25 MG TAB PO SCH ×2 (09:18→20:33)
[2021-05-01] MEDS: Atorvastatin Calcium 40 MG TAB PO SCH (20:29)
[2021-05-01] MEDS: Losartan 25 MG TAB PO SCH (20:31)
[2021-05-01] MEDS: Simethicone Chewable 80 MG TAB PO PRN (20:34)
[2021-05-02] MEDS: Acetaminophen 325 MG TAB PO SCH ×4 (02:06→19:35)
[2021-05-02] MEDS: Simethicone Chewable 80 MG TAB PO PRN ×2 (03:55→18:29)
[2021-05-02] MEDS: Acetaminophen/Codeine 30-300mg Tablet PO SCH ×3 (05:37→17:58)
[2021-05-02] MEDS: Levothyroxine Sodium 88 MCG TAB PO SCH (05:41)
[2021-05-02] MEDS: diphenhydrAMINE 25 MG CAP PO PRN (05:59)
[2021-05-02] MEDS: Polyethylene Glycol 3350 17 GM Packet PO SCH (09:39)
[2021-05-02] MEDS: Senokot S 8.6-50 MG TAB PO SCH ×2 (09:39→19:35)
[2021-05-02] MEDS: Torsemide 10 MG TAB PO SCH (09:39)
[2021-05-02] MEDS: Dabigatran 150 mg Capsule PO SCH ×2 (09:40→19:36)
[2021-05-02] MEDS: Flecainide 50 MG TAB PO SCH ×2 (09:41→19:35)
[2021-05-02] MEDS: hydrALAZINE 25 MG TAB PO SCH ×2 (10:11→19:34)
[2021-05-02] MEDS: Atorvastatin Calcium 40 MG TAB PO SCH (19:34)
[2021-05-02] MEDS: Losartan 25 MG TAB PO SCH (19:34)
[2021-05-03] MEDS: Acetaminophen/Codeine 30-300mg Tablet PO SCH ×4 (00:04→18:00)
[2021-05-03] MEDS: Acetaminophen 325 MG TAB PO SCH ×4 (01:20→20:27)
[2021-05-03] MEDS: Levothyroxine Sodium 88 MCG TAB PO SCH (05:20)
[2021-05-03] MEDS: Polyethylene Glycol 3350 17 GM Packet PO SCH (08:39)
[2021-05-03] MEDS: Senokot S 8.6-50 MG TAB PO SCH ×2 (08:39→20:30)
[2021-05-03] MEDS: hydrALAZINE 25 MG TAB PO SCH ×2 (08:39→20:29)
[2021-05-03] MEDS: Torsemide 10 MG TAB PO SCH (08:39)
[2021-05-03] MEDS: Flecainide 50 MG TAB PO SCH ×2 (08:40→20:28)
[2021-05-03] MEDS: Dabigatran 150 mg Capsule PO SCH ×2 (08:40→20:28)
[2021-05-03] MEDS: Atorvastatin Calcium 40 MG TAB PO SCH (20:28)
[2021-05-03] MEDS: Losartan 25 MG TAB PO SCH (20:29)
[2021-05-03] MEDS: Melatonin 3 MG TAB PO SCH (20:29)
[2021-05-04] MEDS: Acetaminophen/Codeine 30-300mg Tablet PO SCH ×5 (00:02→23:26)
[2021-05-04] MEDS: Acetaminophen 325 MG TAB PO SCH ×4 (01:36→20:11)
[2021-05-04] MEDS: Levothyroxine Sodium 88 MCG TAB PO SCH (05:02)
[2021-05-04] MEDS: Flecainide 50 MG TAB PO SCH ×2 (08:32→20:11)
[2021-05-04] MEDS: Torsemide 10 MG TAB PO SCH (08:33)
[2021-05-04] MEDS: Senokot S 8.6-50 MG TAB PO SCH ×2 (08:33→20:13)
[2021-05-04] MEDS: hydrALAZINE 25 MG TAB PO SCH ×2 (08:35→20:12)
[2021-05-04] MEDS: Polyethylene Glycol 3350 17 GM Packet PO SCH (08:35)
[2021-05-04] MEDS: Dabigatran 150 mg Capsule PO SCH ×2 (08:35→20:11)
[2021-05-04] MEDS: diphenhydrAMINE 25 MG CAP PO PRN (11:00)
[2021-05-04] MEDS: Atorvastatin Calcium 40 MG TAB PO SCH (20:13)
[2021-05-04] MEDS: Losartan 25 MG TAB PO SCH (20:13)
[2021-05-04] MEDS: Melatonin 3 MG TAB PO SCH (20:13)
[2021-05-05] MEDS: Acetaminophen 325 MG TAB PO SCH ×4 (02:35→20:59)
[2021-05-05] MEDS: Levothyroxine Sodium 88 MCG TAB PO SCH (04:59)
[2021-05-05] MEDS: Acetaminophen/Codeine 30-300mg Tablet PO SCH ×4 (05:00→23:58)
[2021-05-05] MEDS: diphenhydrAMINE 25 MG CAP PO PRN (05:22)
[2021-05-05] MEDS: Simethicone Chewable 80 MG TAB PO PRN ×2 (06:45→21:08)
[2021-05-05] MEDS: Flecainide 50 MG TAB PO SCH ×2 (09:15→22:33)
[2021-05-05] MEDS: Torsemide 10 MG TAB PO SCH (09:15)
[2021-05-05] MEDS: Dabigatran 150 mg Capsule PO SCH ×2 (09:15→21:01)
[2021-05-05] MEDS: Senokot S 8.6-50 MG TAB PO SCH ×2 (09:16→21:04)
[2021-05-05] MEDS: Polyethylene Glycol 3350 17 GM Packet PO SCH (09:16)
[2021-05-05] MEDS: hydrALAZINE 25 MG TAB PO SCH ×2 (09:16→21:02)
[2021-05-05] MEDS: Atorvastatin Calcium 40 MG TAB PO SCH (21:01)
[2021-05-05] MEDS: Melatonin 3 MG TAB PO SCH (21:03)
[2021-05-05] MEDS: Losartan 25 MG TAB PO SCH (21:03)
[2021-05-05] MEDS: Cyclobenzaprine 10 MG TAB PO PRN (22:34)
[2021-05-06 01:35] LABS: SARS-CoV-2 PCR by NAA Not Detected (NotDetected)
[2021-05-06] MEDS: Acetaminophen 325 MG TAB PO SCH ×4 (02:45→20:32)
[2021-05-06] MEDS: Levothyroxine Sodium 88 MCG TAB PO SCH (05:38)
[2021-05-06] MEDS: Acetaminophen/Codeine 30-300mg Tablet PO SCH ×4 (05:38→23:20)
[2021-05-06] MEDS: Senokot S 8.6-50 MG TAB PO SCH ×2 (08:31→20:32)
[2021-05-06] MEDS: Flecainide 50 MG TAB PO SCH ×2 (08:31→20:33)
[2021-05-06] MEDS: Torsemide 10 MG TAB PO SCH (08:31)
[2021-05-06] MEDS: Dabigatran 150 mg Capsule PO SCH ×2 (08:31→20:34)
[2021-05-06] MEDS: hydrALAZINE 25 MG TAB PO SCH ×2 (08:32→20:34)
[2021-05-06] MEDS: Polyethylene Glycol 3350 17 GM Packet PO SCH (08:33)
[2021-05-06] MEDS: Cyclobenzaprine 10 MG TAB PO PRN (20:33)
[2021-05-06] MEDS: Losartan 25 MG TAB PO SCH (20:33)
[2021-05-06] MEDS: Melatonin 3 MG TAB PO SCH (20:33)
[2021-05-07] MEDS: Acetaminophen 325 MG TAB PO SCH ×4 (01:23→20:18)
[2021-05-07] MEDS: Acetaminophen/Codeine 30-300mg Tablet PO SCH ×4 (06:20→23:50)
[2021-05-07] MEDS: Levothyroxine Sodium 88 MCG TAB PO SCH (06:20)
[2021-05-07] MEDS: Polyethylene Glycol 3350 17 GM Packet PO SCH (10:07)
[2021-05-07] MEDS: hydrALAZINE 25 MG TAB PO SCH ×2 (10:09→20:19)
[2021-05-07] MEDS: Senokot S 8.6-50 MG TAB PO SCH ×2 (10:09→20:19)
[2021-05-07] MEDS: Dabigatran 150 mg Capsule PO SCH ×2 (10:10→20:18)
[2021-05-07] MEDS: Torsemide 10 MG TAB PO SCH (10:14)
[2021-05-07] MEDS: Flecainide 50 MG TAB PO SCH ×2 (10:14→21:21)
[2021-05-07] MEDS: Atorvastatin Calcium 40 MG TAB PO SCH (20:18)
[2021-05-07] MEDS: Melatonin 3 MG TAB PO SCH (20:19)
[2021-05-07] MEDS: Losartan 25 MG TAB PO SCH (20:19)
[2021-05-08] MEDS: Acetaminophen 325 MG TAB PO SCH ×4 (02:29→20:06)
[2021-05-08] MEDS: Acetaminophen/Codeine 30-300mg Tablet PO SCH ×4 (04:56→23:24)
[2021-05-08] MEDS: Levothyroxine Sodium 88 MCG TAB PO SCH (04:57)
[2021-05-08] MEDS: Senokot S 8.6-50 MG TAB PO SCH ×2 (08:53→20:09)
[2021-05-08] MEDS: hydrALAZINE 25 MG TAB PO SCH ×2 (08:53→20:08)
[2021-05-08] MEDS: Dabigatran 150 mg Capsule PO SCH ×2 (08:53→20:07)
[2021-05-08] MEDS: Polyethylene Glycol 3350 17 GM Packet PO SCH (08:55)
[2021-05-08] MEDS: Torsemide 10 MG TAB PO SCH (08:59)
[2021-05-08] MEDS: Flecainide 50 MG TAB PO SCH ×2 (08:59→20:08)
[2021-05-08] MEDS: Atorvastatin Calcium 40 MG TAB PO SCH (20:07)
[2021-05-08] MEDS: Melatonin 3 MG TAB PO SCH (20:09)
[2021-05-08] MEDS: Losartan 25 MG TAB PO SCH (20:09)
[2021-05-09] MEDS: Acetaminophen 325 MG TAB PO SCH ×4 (01:22→21:13)
[2021-05-09] MEDS: Acetaminophen/Codeine 30-300mg Tablet PO SCH ×3 (05:04→17:49)
[2021-05-09] MEDS: Levothyroxine Sodium 88 MCG TAB PO SCH (05:04)
[2021-05-09] MEDS: Senokot S 8.6-50 MG TAB PO SCH ×2 (09:51→21:13)
[2021-05-09] MEDS: hydrALAZINE 25 MG TAB PO SCH ×2 (09:51→21:13)
[2021-05-09] MEDS: Dabigatran 150 mg Capsule PO SCH ×2 (09:51→21:13)
[2021-05-09] MEDS: Polyethylene Glycol 3350 17 GM Packet PO SCH (09:52)
[2021-05-09] MEDS: Flecainide 50 MG TAB PO SCH ×2 (10:02→21:13)
[2021-05-09] MEDS: Torsemide 10 MG TAB PO SCH (10:02)
[2021-05-09] MEDS: Atorvastatin Calcium 40 MG TAB PO SCH (21:13)
[2021-05-09] MEDS: Losartan 25 MG TAB PO SCH (21:13)
[2021-05-09] MEDS: Melatonin 3 MG TAB PO SCH (21:13)
[2021-05-10] MEDS: Acetaminophen/Codeine 30-300mg Tablet PO SCH ×4 (03:17→17:22)
[2021-05-10] MEDS: Acetaminophen 325 MG TAB PO SCH ×4 (03:17→21:39)
[2021-05-10] MEDS: Levothyroxine Sodium 88 MCG TAB PO SCH (05:38)
[2021-05-10] MEDS: Flecainide 50 MG TAB PO SCH ×2 (09:22→21:40)
[2021-05-10] MEDS: Torsemide 10 MG TAB PO SCH (09:22)
[2021-05-10] MEDS: Dabigatran 150 mg Capsule PO SCH ×2 (09:23→21:40)
[2021-05-10] MEDS: Polyethylene Glycol 3350 17 GM Packet PO SCH (09:23)
[2021-05-10] MEDS: Senokot S 8.6-50 MG TAB PO SCH ×2 (09:23→22:25)
[2021-05-10] MEDS: hydrALAZINE 25 MG TAB PO SCH ×2 (09:23→21:40)
[2021-05-10] MEDS: Losartan 25 MG TAB PO SCH (21:39)
[2021-05-10] MEDS: Cyclobenzaprine 10 MG TAB PO PRN (21:40)
[2021-05-10] MEDS: Melatonin 3 MG TAB PO SCH (21:40)
[2021-05-10] MEDS: Atorvastatin Calcium 40 MG TAB PO SCH (21:40)
[2021-05-11] MEDS: Acetaminophen 325 MG TAB PO SCH ×4 (02:47→20:57)
[2021-05-11] MEDS: Acetaminophen/Codeine 30-300mg Tablet PO SCH ×4 (02:48→17:37)
[2021-05-11] MEDS: Levothyroxine Sodium 88 MCG TAB PO SCH (06:14)
[2021-05-11 06:59] LABS: Hemoglobin 9.7 g/dL (12.0-16.0); Mean Corpuscular HGB CONC 32.3 g/dL (32.0-36.0); Mean Corpuscular Hemoglobin 31.7 pg (27.0-31.0); Mean Corpuscular Volume 97.9 fL (78.0-98.0); Mean Platelet Volume 6.2 fL (7.4-10.4); Platelet Count 449 thou/uL (130-400); RBC Distribution Width 14.1 % (11.5-14.5); Red Blood Cell (RBC) Count 3.05 mill/uL (4.20-5.40); White Blood Cell (WBC) Count 6.3 thou/uL (4.8-10.8)
[2021-05-11 07:40] LABS: Band 1 % (5-11); Eosinophils 1 % (0-10); Lymphocytes 8 % (21-51); MDiff Complete? YES; Monocytes 6 % (0-10); Neutrophil 84 % (42-75); Nucleated RBC 1 % (0); Platelet Morphology Comment Appears Increased; Polychromasia SLIGHT = 2-3 cells (100X) (0-2/hpf)
[2021-05-11] MEDS: Dabigatran 150 mg Capsule PO SCH ×2 (09:26→20:55)
[2021-05-11] MEDS: Flecainide 50 MG TAB PO SCH ×2 (09:26→21:00)
[2021-05-11] MEDS: hydrALAZINE 25 MG TAB PO SCH ×2 (09:28→20:56)
[2021-05-11] MEDS: Senokot S 8.6-50 MG TAB PO SCH ×2 (09:28→20:57)
[2021-05-11] MEDS: Torsemide 10 MG TAB PO SCH (09:28)
[2021-05-11] MEDS: Polyethylene Glycol 3350 17 GM Packet PO SCH (09:29)
[2021-05-11] MEDS: Melatonin 3 MG TAB PO SCH (20:56)
[2021-05-11] MEDS: Atorvastatin Calcium 40 MG TAB PO SCH (20:56)
[2021-05-11] MEDS: Losartan 25 MG TAB PO SCH (20:56)
[2021-05-12] MEDS: Acetaminophen/Codeine 30-300mg Tablet PO SCH ×4 (00:17→17:55)
[2021-05-12] MEDS: Acetaminophen 325 MG TAB PO SCH ×4 (01:59→20:28)
[2021-05-12] MEDS: Levothyroxine Sodium 88 MCG TAB PO SCH (05:29)
[2021-05-12 08:14] LABS: #Eosinphils 0.2 thou/uL (0.0-0.7); #Lymphocytes 1.1 thou/uL (1.20-3.40); #Monocytes 0.8 thou/uL (0.11-0.59); #Neutrophils 4.8 thou/uL (1.40-6.50); %Basophils 0.6 % (0.0-1.0); %Eosinophils 2.9 % (0.0-10.0); %Lymphocytes 15.6 % (21.0-51.0); %Monocytes 10.9 % (0.0-10.0); Hemoglobin 9.9 g/dL (12.0-16.0); Mean Corpuscular HGB CONC 30.8 g/dL (32.0-36.0); Mean Corpuscular Hemoglobin 30.1 pg (27.0-31.0); Mean Corpuscular Volume 97.6 fL (78.0-98.0); Mean Platelet Volume 6.2 fL (7.4-10.4); Platelet Count 448 thou/uL (130-400); Red Blood Cell (RBC) Count 3.29 mill/uL (4.20-5.40); White Blood Cell (WBC) Count 6.9 thou/uL (4.8-10.8)
[2021-05-12 08:35] LABS: Anion Gap 13 mmol/L (10-20); BUN (Urea Nitrogen) 18 mg/dL (9.8-20.1); Calc. Creatinine Clearance 120 mL/min (70-130); Carbon Dioxide 25 mmol/L (23-31); Chloride 102 mmol/L (98-107); Glucose 114 mg/dL (80-115); Magnesium 1.9 mg/dL (1.6-2.6); Phosphorus 2.7 mg/dL (2.3-4.7); Potassium 4.2 mmol/L (3.5-5.1); Sodium 136 mmol/L (136-145)
[2021-05-12] MEDS ORDERED: Sodium Chloride 0.9% 1,000 ML IV SCH (11:15)
[2021-05-12] MEDS ORDERED: Fentanyl 100 MCG/2 ML VIAL ONE ×3 (12:01→15:00)
[2021-05-12] MEDS ORDERED: SUGAMMADEX SODIUM 200 MG/2 ML VIAL ONE (12:40)
[2021-05-12] MEDS ORDERED: ceFAZolin 2 GM/Dextrose 50 ML IVPB ONE (12:43)
[2021-05-12] MEDS ORDERED: Promethazine HCl 25 MG/ML VIAL IVPB PRN (12:45)
[2021-05-12] MEDS ORDERED: Promethazine HCl 25 MG/ML VIAL IM PRN (12:45)
[2021-05-12] MEDS ORDERED: Ondansetron HCl/PF 4 MG/2 ML Vial IVP PRN (12:45)
[2021-05-12] MEDS ORDERED: Ondansetron PF 4 MG/2 ML Vial ONE (13:12)
[2021-05-12] MEDS ORDERED: ePHEDrine 50 MG/ML VIAL ONE (13:12)
[2021-05-12] MEDS ORDERED: PHENYLEPHRINE-NS 100 MCG/ML 10 ML SYRINGE ONE (13:12)
[2021-05-12] MEDS ORDERED: Rocuronium Bromide 10 MG/ML (10ML VIAL) ONE (13:12)
[2021-05-12] MEDS ORDERED: Glycopyrrolate 0.2 MG/ML 5 ML SYRINGE ONE (13:12)
[2021-05-12] MEDS ORDERED: PROPOFOL 200 MG/20 ML VIAL ONE (13:12)
[2021-05-12] MEDS ORDERED: Dexamethasone 20 MG/5 ML VIAL ONE (13:12)
[2021-05-12] MEDS ORDERED: Lidocaine 1% PF 5 ML VIAL ONE (13:12)
[2021-05-12] MEDS: Dabigatran 150 mg Capsule PO SCH ×2 (14:12→20:28)
[2021-05-12] MEDS: Polyethylene Glycol 3350 17 GM Packet PO SCH (14:13)
[2021-05-12] MEDS: Senokot S 8.6-50 MG TAB PO SCH ×2 (14:13→20:30)
[2021-05-12] MEDS: hydrALAZINE 25 MG TAB PO SCH ×2 (14:13→20:29)
[2021-05-12] MEDS: Flecainide 50 MG TAB PO SCH ×2 (14:13→20:29)
[2021-05-12] MEDS: Torsemide 10 MG TAB PO SCH (14:13)
[2021-05-12 17:13] LABS: SARS-CoV-2 PCR by NAA Not Detected (NotDetected)
[2021-05-12] MEDS: Atorvastatin Calcium 40 MG TAB PO SCH (20:29)
[2021-05-12] MEDS: Losartan 25 MG TAB PO SCH (20:29)
[2021-05-12] MEDS: Melatonin 3 MG TAB PO SCH (20:29)
[2021-05-13] MEDS: VANCOMYCIN 1.75 GM/350 ML BAG 1.75 GM in Premix Bag 1 BAG IVPB SCH ×2 (00:41→12:22)
[2021-05-13] MEDS: Acetaminophen/Codeine 30-300mg Tablet PO SCH ×4 (00:41→18:25)
[2021-05-13] MEDS: Acetaminophen 325 MG TAB PO SCH ×4 (02:31→20:26)
[2021-05-13] MEDS: Levothyroxine Sodium 88 MCG TAB PO SCH (05:00)
[2021-05-13 05:27] LABS: #Lymphocytes 0.6 thou/uL (1.20-3.40); #Monocytes 0.5 thou/uL (0.11-0.59); #Neutrophils 7.4 thou/uL (1.40-6.50); %Eosinophils 0.1 % (0.0-10.0); %Lymphocytes 7.2 % (21.0-51.0); %Monocytes 5.4 % (0.0-10.0); %Neutrophils 87.3 % (42.0-75.0); Hemoglobin 9.3 g/dL (12.0-16.0); Mean Corpuscular HGB CONC 30.8 g/dL (32.0-36.0); Mean Corpuscular Hemoglobin 29.7 pg (27.0-31.0); Mean Corpuscular Volume 96.4 fL (78.0-98.0); Mean Platelet Volume 6.1 fL (7.4-10.4); Platelet Count 434 thou/uL (130-400); RBC Distribution Width 13.8 % (11.5-14.5); Red Blood Cell (RBC) Count 3.14 mill/uL (4.20-5.40); White Blood Cell (WBC) Count 8.4 thou/uL (4.8-10.8)
[2021-05-13 05:46] LABS: Anion Gap 11 mmol/L (10-20); BUN (Urea Nitrogen) 20 mg/dL (9.8-20.1); Calc. Creatinine Clearance 118 mL/min (70-130); Calcium 8.1 mg/dL (7.8-10.44); Carbon Dioxide 26 mmol/L (23-31); Chloride 102 mmol/L (98-107); Glucose 238 mg/dL (80-115); Magnesium 1.9 mg/dL (1.6-2.6); Phosphorus 2.5 mg/dL (2.3-4.7); Potassium 4.9 mmol/L (3.5-5.1); Sodium 134 mmol/L (136-145)
[2021-05-13] MEDS: Flecainide 50 MG TAB PO SCH ×2 (08:49→20:27)
[2021-05-13] MEDS: hydrALAZINE 25 MG TAB PO SCH ×2 (08:50→20:25)
[2021-05-13] MEDS: Torsemide 10 MG TAB PO SCH (08:50)
[2021-05-13] MEDS: Dabigatran 150 mg Capsule PO SCH ×2 (08:51→20:25)
[2021-05-13] MEDS: Senokot S 8.6-50 MG TAB PO SCH ×2 (08:54→20:25)
[2021-05-13] MEDS ORDERED: Sodium Phosphate 30 MMOL in Sodium Chloride 0.9% 250 ML 250 ML IVPB SCH (09:00)
[2021-05-13] MEDS ORDERED: Calcium Carbonate 500 MG ChewTAB PO PRN (11:20)
[2021-05-13] MEDS: Polyethylene Glycol 3350 17 GM Packet PO SCH (18:24)
[2021-05-13] MEDS: Montelukast Sodium 10 mg Tablet PO SCH (20:25)
[2021-05-13] MEDS: Melatonin 3 MG TAB PO SCH (20:25)
[2021-05-13] MEDS: Losartan 25 MG TAB PO SCH (20:25)
[2021-05-13] MEDS: Atorvastatin Calcium 40 MG TAB PO SCH (20:26)
[2021-05-13 23:37] LABS: Vancomycin, Trough 29.2 ug/mL
[2021-05-14] MEDS: Acetaminophen/Codeine 30-300mg Tablet PO SCH ×5 (00:02→23:32)
[2021-05-14] MEDS: VANCOMYCIN 1.75 GM/350 ML BAG 1.75 GM in Premix Bag 1 BAG IVPB SCH (00:03)
[2021-05-14] MEDS ORDERED: VANCOMYCIN 1.75 GM/350 ML BAG 1.75 GM in Premix Bag 1 BAG IVPB SCH (00:15)
[2021-05-14] MEDS: Acetaminophen 325 MG TAB PO SCH ×4 (02:51→20:39)
[2021-05-14] MEDS: Levothyroxine Sodium 88 MCG TAB PO SCH (05:24)
[2021-05-14 07:34] LABS: Vancomycin, Random 23.1 ug/mL (See Comment)
[2021-05-14] MEDS: Polyethylene Glycol 3350 17 GM Packet PO SCH (08:52)
[2021-05-14] MEDS: Flecainide 50 MG TAB PO SCH ×2 (08:52→20:38)
[2021-05-14] MEDS: Senokot S 8.6-50 MG TAB PO SCH ×2 (08:52→20:39)
[2021-05-14] MEDS: Dabigatran 150 mg Capsule PO SCH ×2 (08:52→20:39)
[2021-05-14] MEDS: hydrALAZINE 25 MG TAB PO SCH ×2 (08:52→20:39)
[2021-05-14] MEDS: Torsemide 10 MG TAB PO SCH (08:52)
[2021-05-14] MEDS ORDERED: VANCOMYCIN 1.25 GM/250 ML BAG 1.25 GM in Premix Bag 1 BAG IVPB SCH (12:00)
[2021-05-14] MEDS: Melatonin 3 MG TAB PO SCH (20:37)
[2021-05-14] MEDS: Losartan 25 MG TAB PO SCH (20:38)
[2021-05-14] MEDS: Atorvastatin Calcium 40 MG TAB PO SCH (20:38)
[2021-05-14] MEDS: Montelukast Sodium 10 mg Tablet PO SCH (20:39)
[2021-05-14] MEDS: Sulfameth/Trimethoprim DS 800-160mg TAB PO SCH (20:50)
[2021-05-15] MEDS: Acetaminophen 325 MG TAB PO SCH ×4 (02:43→21:00)
[2021-05-15] MEDS: Levothyroxine Sodium 88 MCG TAB PO SCH (05:03)
[2021-05-15] MEDS: Acetaminophen/Codeine 30-300mg Tablet PO SCH ×3 (05:04→17:51)
[2021-05-15 08:37] LABS: #Eosinphils 0.2 thou/uL (0.0-0.7); #Lymphocytes 1.4 thou/uL (1.20-3.40); #Monocytes 0.9 thou/uL (0.11-0.59); #Neutrophils 5.3 thou/uL (1.40-6.50); %Basophils 0.2 % (0.0-1.0); %Eosinophils 2.8 % (0.0-10.0); %Monocytes 11.1 % (0.0-10.0); %Neutrophils 67.9 % (42.0-75.0); Hemoglobin 10.1 g/dL (12.0-16.0); Mean Corpuscular HGB CONC 30.3 g/dL (32.0-36.0); Mean Corpuscular Hemoglobin 29.7 pg (27.0-31.0); Mean Corpuscular Volume 98.1 fL (78.0-98.0); Mean Platelet Volume 6.2 fL (7.4-10.4); Platelet Count 490 thou/uL (130-400); RBC Distribution Width 14.1 % (11.5-14.5); Red Blood Cell (RBC) Count 3.42 mill/uL (4.20-5.40); White Blood Cell (WBC) Count 7.9 thou/uL (4.8-10.8)
[2021-05-15 08:56] LABS: Anion Gap 14 mmol/L (10-20); BUN (Urea Nitrogen) 25 mg/dL (9.8-20.1); Calc. Creatinine Clearance 103 mL/min (70-130); Calcium 8.3 mg/dL (7.8-10.44); Carbon Dioxide 24 mmol/L (23-31); Chloride 105 mmol/L (98-107); Glucose 99 mg/dL (80-115); Magnesium 1.9 mg/dL (1.6-2.6); Phosphorus 3.3 mg/dL (2.3-4.7); Potassium 4.7 mmol/L (3.5-5.1); Sodium 138 mmol/L (136-145)
[2021-05-15] MEDS: Polyethylene Glycol 3350 17 GM Packet PO SCH (09:52)
[2021-05-15] MEDS: Flecainide 50 MG TAB PO SCH ×2 (09:52→21:18)
[2021-05-15] MEDS: Dabigatran 150 mg Capsule PO SCH ×2 (09:53→21:02)
[2021-05-15] MEDS: hydrALAZINE 25 MG TAB PO SCH ×2 (09:53→21:02)
[2021-05-15] MEDS: Senokot S 8.6-50 MG TAB PO SCH ×2 (09:55→21:02)
[2021-05-15] MEDS: Torsemide 10 MG TAB PO SCH (09:55)
[2021-05-15] MEDS: Sulfameth/Trimethoprim DS 800-160mg TAB PO SCH ×2 (09:56→21:02)
[2021-05-15] MEDS: Montelukast Sodium 10 mg Tablet PO SCH (21:01)
[2021-05-15] MEDS: Atorvastatin Calcium 40 MG TAB PO SCH (21:01)
[2021-05-15] MEDS: Losartan 25 MG TAB PO SCH (21:01)
[2021-05-15] MEDS: Melatonin 3 MG TAB PO SCH (21:01)
[2021-05-16] MEDS: Acetaminophen/Codeine 30-300mg Tablet PO SCH ×5 (00:02→23:19)
[2021-05-16] MEDS: Acetaminophen 325 MG TAB PO SCH ×4 (03:01→20:36)
[2021-05-16] MEDS: Levothyroxine Sodium 88 MCG TAB PO SCH (05:34)
[2021-05-16] MEDS: Dabigatran 150 mg Capsule PO SCH ×2 (09:18→20:37)
[2021-05-16] MEDS: Flecainide 50 MG TAB PO SCH ×2 (09:18→20:38)
[2021-05-16] MEDS: Senokot S 8.6-50 MG TAB PO SCH ×2 (09:18→20:42)
[2021-05-16] MEDS: Sulfameth/Trimethoprim DS 800-160mg TAB PO SCH ×2 (09:18→20:42)
[2021-05-16] MEDS: Torsemide 10 MG TAB PO SCH (09:18)
[2021-05-16] MEDS: hydrALAZINE 25 MG TAB PO SCH ×2 (09:19→20:39)
[2021-05-16] MEDS: Polyethylene Glycol 3350 17 GM Packet PO SCH (09:24)
[2021-05-16] MEDS: Clindamycin 150 MG CAP PO SCH ×2 (18:30→23:19)
[2021-05-16] MEDS: Atorvastatin Calcium 40 MG TAB PO SCH (20:37)
[2021-05-16] MEDS: Melatonin 3 MG TAB PO SCH (20:41)
[2021-05-16] MEDS: Losartan 25 MG TAB PO SCH (20:41)
[2021-05-16] MEDS: Montelukast Sodium 10 mg Tablet PO SCH (20:41)
[2021-05-17] MEDS: Acetaminophen 325 MG TAB PO SCH ×4 (02:07→21:20)
[2021-05-17] MEDS: Acetaminophen/Codeine 30-300mg Tablet PO SCH ×3 (05:13→18:50)
[2021-05-17] MEDS: Clindamycin 150 MG CAP PO SCH ×3 (05:14→18:50)
[2021-05-17] MEDS: Levothyroxine Sodium 88 MCG TAB PO SCH (05:14)
[2021-05-17 07:35] LABS: Anion Gap 13 mmol/L (10-20); BUN (Urea Nitrogen) 23 mg/dL (9.8-20.1); Calc. Creatinine Clearance 93 mL/min (70-130); Calcium 8.1 mg/dL (7.8-10.44); Carbon Dioxide 23 mmol/L (23-31); Chloride 104 mmol/L (98-107); Glucose 100 mg/dL (80-115); Magnesium 1.8 mg/dL (1.6-2.6); Phosphorus 3.1 mg/dL (2.3-4.7); Potassium 4.6 mmol/L (3.5-5.1); Sodium 135 mmol/L (136-145)
[2021-05-17 07:41] LABS: #Eosinphils 0.3 thou/uL (0.0-0.7); #Lymphocytes 1.1 thou/uL (1.20-3.40); #Monocytes 0.7 thou/uL (0.11-0.59); %Eosinophils 4.6 % (0.0-10.0); %Lymphocytes 17.7 % (21.0-51.0); %Monocytes 11.8 % (0.0-10.0); %Neutrophils 65.8 % (42.0-75.0); Hemoglobin 10.1 g/dL (12.0-16.0); Mean Corpuscular Hemoglobin 30.1 pg (27.0-31.0); Mean Corpuscular Volume 97.4 fL (78.0-98.0); Mean Platelet Volume 6.3 fL (7.4-10.4); Platelet Count 436 thou/uL (130-400); RBC Distribution Width 14.6 % (11.5-14.5); Red Blood Cell (RBC) Count 3.35 mill/uL (4.20-5.40); White Blood Cell (WBC) Count 6.1 thou/uL (4.8-10.8)
[2021-05-17] MEDS: Senokot S 8.6-50 MG TAB PO SCH ×2 (09:37→21:19)
[2021-05-17] MEDS: Dabigatran 150 mg Capsule PO SCH ×2 (09:37→21:20)
[2021-05-17] MEDS: Polyethylene Glycol 3350 17 GM Packet PO SCH (09:37)
[2021-05-17] MEDS: Sulfameth/Trimethoprim DS 800-160mg TAB PO SCH (09:37)
[2021-05-17] MEDS: hydrALAZINE 25 MG TAB PO SCH ×2 (09:38→21:21)
[2021-05-17] MEDS: Flecainide 50 MG TAB PO SCH ×2 (09:39→21:20)
[2021-05-17] MEDS: Torsemide 10 MG TAB PO SCH (09:39)
[2021-05-17] MEDS: diphenhydrAMINE 25 MG CAP PO PRN (09:44)
[2021-05-17] MEDS: Melatonin 3 MG TAB PO SCH (21:20)
[2021-05-17] MEDS: Cyclobenzaprine 10 MG TAB PO PRN (21:21)
[2021-05-17] MEDS: Montelukast Sodium 10 mg Tablet PO SCH (21:21)
[2021-05-17] MEDS: Atorvastatin Calcium 40 MG TAB PO SCH (21:21)
[2021-05-17] MEDS: Losartan 25 MG TAB PO SCH (21:22)
[2021-05-18] MEDS: Acetaminophen 325 MG TAB PO SCH ×2 (00:51→09:25)
[2021-05-18] MEDS: Clindamycin 150 MG CAP PO SCH ×2 (00:51→05:13)
[2021-05-18] MEDS: Acetaminophen/Codeine 30-300mg Tablet PO SCH ×2 (00:52→05:12)
[2021-05-18] MEDS: diphenhydrAMINE 25 MG CAP PO PRN (05:12)
[2021-05-18] MEDS: Levothyroxine Sodium 88 MCG TAB PO SCH (05:13)
[2021-05-18] MEDS ORDERED: Saccharomyces boulardii 250 MG CAP PO SCH (09:00)
[2021-05-18] MEDS: Dabigatran 150 mg Capsule PO SCH (09:23)
[2021-05-18] MEDS: Flecainide 50 MG TAB PO SCH (09:23)
[2021-05-18] MEDS: Torsemide 10 MG TAB PO SCH (09:25)
[2021-05-18] MEDS: hydrALAZINE 25 MG TAB PO SCH (09:25)
[2021-05-18] MEDS: Polyethylene Glycol 3350 17 GM Packet PO SCH (09:27)
[2021-05-18] MEDS: Senokot S 8.6-50 MG TAB PO SCH (09:27)
[2021-05-18] MEDS: Cyclobenzaprine 10 MG TAB PO PRN (09:52)
[2021-05-18 10:01] VITALS: BP 118/68; TEMP 97.7
== END 2021-05-18 10:48 | disposition home health service (06) | DRG 956 ==
LOC: ERS 07:12 → IMCU/EMU 08:08 → SURG B 04-22 16:56
PROVIDERS: ADMIT Surgery; ATTEND Surgery
PROC: 0QSC04Z Reposition Left Lower Femur with Internal Fixation Device, Open Approach (ICD-10-PCS; principal; 2021-04-21)
PROC: 0QSB06Z Reposition Right Lower Femur with Intramedullary Internal Fixation Device, Open Approach (ICD-10-PCS; 2021-04-21)
PROC: 0PSFXZZ Reposition Right Humeral Shaft, External Approach (ICD-10-PCS; 2021-04-21)
PROC: 30233L1 Transfusion of Nonautologous Fresh Plasma into Peripheral Vein, Percutaneous Approach (ICD-10-PCS; 2021-04-21)
PROC: 30233N1 Transfusion of Nonautologous Red Blood Cells into Peripheral Vein, Percutaneous Approach (ICD-10-PCS; 2021-04-21)
PROC: 30233K1 Transfusion of Nonautologous Frozen Plasma into Peripheral Vein, Percutaneous Approach (ICD-10-PCS; 2021-04-21)
PROC: 0PSF04Z Reposition Right Humeral Shaft with Internal Fixation Device, Open Approach (ICD-10-PCS; 2021-04-23)
PROC: 0HBJXZZ Excision of Left Upper Leg Skin, External Approach (ICD-10-PCS; 2021-05-12)
DX: S72.492A Other fracture of lower end of left femur, initial encounter for closed fracture (principal); T79.6XXA Traumatic ischemia of muscle, initial encounter; A41.9 Sepsis, unspecified organism; R65.21 Severe sepsis with septic shock; R57.8 Other shock; S12.190A Other displaced fracture of second cervical vertebra, initial encounter for closed fracture; S12.030A Displaced posterior arch fracture of first cervical vertebra, initial encounter for closed fracture; S72.491A Other fracture of lower end of right femur, initial encounter for closed fracture; S42.491A Other displaced fracture of lower end of right humerus, initial encounter for closed fracture; S22.42XA Multiple fractures of ribs, left side, initial encounter for closed fracture; D62 Acute posthemorrhagic anemia; I24.8 Other forms of acute ischemic heart disease; N17.9 Acute kidney failure, unspecified; T81.31XA Disruption of external operation (surgical) wound, not elsewhere classified, initial encounter; Z68.43 Body mass index [BMI] 50.0-59.9, adult; I48.91 Unspecified atrial fibrillation; E78.5 Hyperlipidemia, unspecified; J45.909 Unspecified asthma, uncomplicated; K21.9 Gastro-esophageal reflux disease without esophagitis; E78.00 Pure hypercholesterolemia, unspecified; K59.00 Constipation, unspecified; Y83.8 Other surgical procedures as the cause of abnormal reaction of the patient, or of later complication, without mention of misadventure at the time of the procedure; E66.9 Obesity, unspecified; N18.9 Chronic kidney disease, unspecified; I12.9 Hypertensive chronic kidney disease with stage 1 through stage 4 chronic kidney disease, or unspecified chronic kidney disease; Z20.822 Contact with and (suspected) exposure to COVID-19; Z90.49 Acquired absence of other specified parts of digestive tract; Z98.51 Tubal ligation status; Z88.8 Allergy status to other drugs, medicaments and biological substances; Z86.73 Personal history of transient ischemic attack (TIA), and cerebral infarction without residual deficits; V89.1XXA Person injured in unspecified nonmotor-vehicle accident, nontraffic, initial encounter; Y92.89 Other specified places as the place of occurrence of the external cause
CPT/HCPCS: 0240U; 36415; 36416; 36430; 71045; 72170; 76000; 80048; 80053; 80202; 82550; 82553; 83690; 83735; 83880; 84100; 84311; 84484; 85007; 85025; 85027; 85610; 85730; 86850; 86900; 86901; 87070; 87076; 87077; 87086; 87186; 87205; 90471; 90715; 93005; 93306; 96374; 96375; C1713; C1768; C9399; G0390; J0360; J0690; J1100; J1650; J2270; J2370; J2405; J2704; J2765; J3010; J3370; J3475; J3490; J7050; P9016; P9048; S0028; U0003; U0005